=== PATIENT | male | born 2000 | race Caucasian/White ===

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

== ENCOUNTER 2019-07-15 12:26 | Inpatient (IN) | payer BC, MEDICAID ==
[~2019-07-15] VITALS: Ht 175.3 cm; Wt 78.1 kg
[~2019-07-15 12:26] MED LIST changes: -ARIP10TAB PO; +ARIP1TAB4 PO; -ARIP2TAB PO
[2019-07-15 13:54] LABS: HEMATOCRIT 44.3 % (42.0-52.0); HEMOGLOBIN 15.4 g/dl (13.5-17.5); MEAN CORPUSCULAR HGB CONC 34.8 g/dl (32.0-36.5); MEAN CORPUSCULAR VOLUME 86.2 fl (80.0-96.0); PLATELET COUNT, AUTOMATED 231 10^3/uL (150-450); RED BLOOD COUNT 5.14 10^6/uL (4.30-6.10); WHITE BLOOD COUNT 10.1 10^3/uL (4.0-10.0)
[2019-07-15 14:11] LABS: AMPHETAMINES LEVEL URINE NEGATIVE (NEGATIVE); BARBITURATES URINE NEGATIVE (NEGATIVE); BENZODIAZEPINES URINE NEGATIVE (NEGATIVE); CANNABINOIDS URINE NEGATIVE (NEGATIVE); COCAINE METABOLITE URINE NEGATIVE (NEGATIVE); METHADONE URINE NEGATIVE (NEGATIVE); OPIATES URINE NEGATIVE (NEGATIVE); PHENCYCLIDINE URINE NEGATIVE (NEGATIVE)
[2019-07-15 14:20] LABS: ACETAMINOPHEN LEVEL < 2.0 UG/ML (10.0-30.0); ALBUMIN 4.4 GM/DL (3.2-5.2); ALT/SGPT 24 U/L (12-78); BILIRUBIN,DIRECT 0.2 MG/DL (0.0-0.2); BILIRUBIN,TOTAL 0.5 MG/DL (0.2-1.0); BLOOD UREA NITROGEN 16 MG/DL (7-18); CALCIUM LEVEL 9.9 MG/DL (8.5-10.1); CARBON DIOXIDE LEVEL 31 MEQ/L (21-32); CHLORIDE LEVEL 103 MEQ/L (98-107); CREATININE FOR GFR 1.18 MG/DL (0.70-1.30); ETHYL ALCOHOL (ETHANOL) < 0.003 % (0.000-0.010); GLUCOSE, FASTING 102 MG/DL (70-100); POTASSIUM SERUM 4.1 MEQ/L (3.5-5.1); SALICYLATE LEVEL < 1.7 MG/DL (5.0-30.0); SODIUM LEVEL 140 MEQ/L (136-145); TOTAL PROTEIN 7.7 GM/DL (6.4-8.2)
[2019-07-15] MEDS ORDERED: SERT-138 PO (18:21)
[2019-07-15] MEDS ORDERED: ARIP1TAB PO (18:21)
[2019-07-15] MEDS ORDERED: MAALOX 30 ML SUSP *UDC PO PRN (18:30)
[2019-07-15] MEDS ORDERED: traZODone 50 MG TAB PO PRN (18:30)
[2019-07-15] MEDS ORDERED: MOM 30ML SUSPENSION UDC PO PRN (18:30)
[2019-07-15 20:16] VITALS: BP 144/86
[2019-07-16 06:00] VITALS: BP 140/57
--- NOTE | 2019-07-16 09:59 | MHHPEPDOC ---
[facility] History & Physical History and Physical Date of Service: 07/16/2019 Chief Complaint "I don't know why I'm here." History of Present Illness The patient, a 18-year-old young man, with a reported history of autism and reported concerns of schizophrenia, presents to the emergency room reportedly with "multiple personalities" that have been a chronic phenomenon for several years for the patient. He reportedly had yelled at a worker at his school and had wanted to leave, however, it's unclear as to why he was admitted as well as he denied any suicidal or homicidal ideation. He reports that he was not doing any unsafe behaviors and is unsure as to why he's admitted. The patient describes chronic multiple personalities, which appear to be consistent with schizotypal personality and magical thinking, but the patient appears to demonstrate significant reality testing. He reports that he wishes to be discharged as he has not been under any major changes and denies any major psychosocial changes. He reportedly was brought to the emergency room by his mother after the school psychology specialist had directed her to do so. Review Of Systems Depression: The patient denies any episodes of unprovoked depressed mood associated with neurovegetative symptoms lasting longer than 2 weeks with symptoms present nearly everyday. Anxiety: The patient denies any excessive worry associated with physical symptoms. They deny any experience of discreet panic in the past. Rocio: The patient denies any episodes of euphoria/dysphoria associated with decreased need for sleep, hedonism, talkatively or impulsivity lasting longer than 5 days. Psychotic: As above, but no overt episodes of auditory or visual hallucinations. Trauma: The patient denies any traumatic events associated with nightmares or intrusive thoughts. Borderline: Screens positive for cluster C personalities, but no cluster B traits. Past Psychiatric History The patient has a reported diagnosis of depression in the past and has been admitted in the past to [facility] for suicidal thoughts and had had one admission as a child, but it's unclear as to the rationale. The patient's on sertraline 200 and Abilify 10 mg daily "which he reports it's positive." He describes he's tried other medications, but is unable to recollect these at this time stating that his mother monitors most of his medications. He currently follows with [facility] for outpatient. Allergies Please see below. Family Psychiatric History The patient reports that his sister abused drugs and that his mother and sister have attempted suicide with a paternal uncle dying by suicide. Social History The patient currently lives with his mother. He's never with no children. The patient has no legal history. Currently has 2 siblings with a good relationship. He currently attends a technical/trade school and reports that he has been training. He's not clear as to what he wants to do when he grows up. He's currently in the 11th grade, but had failed the 11th grade last year. He's a self-described asexual. Substance Abuse History The patient denies any excessive alcohol use, tobacco or illicit drug use, denies history of substance use treatment. Medical History Patient has no significant past medical history. Mental Status Examination General: Well dressed with good hygiene Speech: Spontaneous and fluid Thought processes: Linear and logical MSK: Smooth and coordinated gait, no signs of tremors or involuntary orofacial movements Thought content: Future orientated Abstract reasoning, and computation: Intact Description of associations: Intact Description of abnormal or psychotic thoughts: Denies any suicidal or homicidal ideation. Denies any auditory or visual hallucinations. Does not appear to be responding to internal stimuli. Does discuss some of his "multiple personalities, but demonstrates fair reality testing when discussing them Judgment: fair Insight: fair Orientation: Alert and orientated 3 Cognition: Grossly normal Recent and remote memory: Intact Attention span and concentration: Intact Fund of knowledge: Adequate Mood: "okay" Affect: Euthymic with a full range Diagnoses Autism spectrum disorder. Schizotypal personality disorder. Unspecified depressive disorder. Assessment and Plan The patient, a 18-year-old young man, with likely autism and magical thinking consistent with schizotypal way of thinking rather than a psychotic thought process and is admitted for unclear circumstances. He demonstrates signs and symptoms that are primarily consistent with developmental/neuroatypicality rather than an overt psychotic disorder. Disposition The patient will likely need admission lasting longer than 2 midnights in order to ascertain the events that had led to his admission and ensure safety. Problem List 1. Ineffective coping. Initial Treatment Plan 1. Patient was admitted on a 9.39 legal status. 2. Complete history was obtained. 3. With patients permission, family will be contacted and database will be expanded. 4. Patients medication regimen will be reviewed and changed accordingly. 5. Patient will be provided with protected environment. 6. Patient will be treated with individual, group, and milieu therapies. 7. Patient will receive supportive psych-education. 8. Discharge planning will commence immediately. 9. Outpatient follow-up treatment will be strongly recommended. 10. The initial treatment plan will focus initially on restarting home medications. Estimated Length Of Stay Three days. Time Spent 45 minutes. Sunday Vital Signs Vital Signs Date Time Temp Pulse Resp B/P (MAP) Pulse Ox O2 Delivery O2 Flow Rate FiO2 07/16/19 06:00 97.9 85 16 140/57 (84) 07/15/19 20:16 98 07/15/19 12:26 Room Air Laboratory Data 24H Labs Laboratory Tests 2 07/15/19 13:34: Urine Amphetamines Screen NEGATIVE, Urine Benzodiazepines Screen NEGATIVE, Urine Opiates Screen NEGATIVE, Urine Methadone Screen NEGATIVE, Urine Barbiturates Screen NEGATIVE, Urine Phencyclidine Screen NEGATIVE, Urine Cocaine Metabolite Screen NEGATIVE, Urine Cannabinoids Screen NEGATIVE 07/15/19 13:35: Nucleated Red Blood Cells % (auto) 0.0, Anion Gap 6L, Calcium Level 9.9, Aspartate Amino Transf (AST/SGOT) 24, Alanine Aminotransferase (ALT/SGPT) 24, Alkaline Phosphatase 113, Total Bilirubin 0.5, Direct Bilirubin 0.2, Total Protein 7.7, Albumin 4.4, Albumin/Globulin Ratio 1.33, Thyroid Stimulating Horm one (TSH) 1.360, Salicylates Level < 1.7L, Acetaminophen Level < 2.0L, Ethyl Alcohol Level < 0.003 CBC/BMP Laboratory Tests 07/15/19 13:35 Red Blood Count 5.14, Mean Corpuscular Volume 86.2, Mean Corpuscular Hemoglobin 30.0, Mean Corpuscular Hemoglobin Concent 34.8, Red Cell Distribution Width 13.2 Medications Scheduled Aripiprazole (Aripiprazole) 10 Mg Tablet, 10 MG PO QHS, (Reported) Sertraline HCl (Sertraline HCl) 100 Mg Tablet, 200 MG PO DAILY, (Reported) Allergies Coded Allergies: No Known Allergies (Unverified , 01/30/18) OJ JUAN DO Jul 16, 2019 09:59
[2019-07-16] MEDS: SERTRALINE 100 MG TAB PO SCH (11:53)
[2019-07-16 15:30] VITALS: BP 152/65
--- NOTE | 2019-07-16 17:57 | CR.PDOC ---
General Date of Consultation: Jul 16, 2019 Attending Physician: CHRISTIANO JIMÉNEZ DO Consultation REASON FOR CONSULTATION/CHIEF COMPLAINT: Physical evaluation HISTORY OF PRESENT ILLNESS: Patient is 18 years old male with past medical history of autistic disorder, schizophrenia presented to the hospital with agitation. During my interview patient denied any problem with health besides only with mental health. He denied any cardiovascular problem, breathing problem, GI problem or dysuria. He denies fever, chills, nausea, vomiting, shortness of breath, palpitations, diarrhea or dysuria ALLERGIES: Please see below. HOME MEDICATIONS: Please see below. PAST MEDICAL HISTORY: autistic disorder, schizophrenia PAST SURGICAL HISTORY: None FAMILY HISTORY: Father: Healthy Mother: Healthy SOCIAL HISTORY: Marital status and/or living arrangements: Single Tobacco use: Denied ETOH: Denied Illicit drug use: Denied IV drug use: Denied PHYSICAL EXAMINATION: VITAL SIGNS: Please see below. GENERAL APPEARANCE: NAD HEENT: PERRLA, EOMI RESPIRATORY: CTA CARDIOVASCULAR: S1-S2 ABDOMEN: Nontender nondistended EXTREMITIES: No swelling NEUROLOGICAL: Cranial nerves from 2-12 intact LABORATORY DATA: Please see below. ASSESSMENT/PLAN: Patient does not have any acute diseases besides of his psychiatric diseases. Vital Signs/I&O Vital Signs Date Time Temp Pulse Resp B/P (MAP) Pulse Ox O2 Delivery O2 Flow Rate FiO2 07/16/19 15:30 98.8 74 20 152/65 (94) 07/15/19 20:16 98 07/15/19 12:26 Room Air Allergies Coded Allergies: No Known Allergies (Unverified , 01/30/18) Home Medications Scheduled Aripiprazole (Aripiprazole) 10 Mg Tablet, 10 MG PO QHS, (Reported) Sertraline HCl (Sertraline HCl) 100 Mg Tablet, 200 MG PO DAILY, (Reported) CHRISTIANO JIMÉNEZ DO Jul 16, 2019 17:57
[2019-07-16] MEDS: ARIPiprazole 10 MG TAB PO SCH (20:50)
[2019-07-17 06:26] VITALS: BP 122/74
[2019-07-17] MEDS: ACETAMINOPHEN TAB 650MG DOSE (2X325MG) PO PRN (07:01)
[2019-07-17] MEDS: SERTRALINE 100 MG TAB PO SCH (09:39)
--- NOTE | 2019-07-17 11:47 | MHIPNPDOC ---
[facility] Progress Note Progress Note DATE OF SERVICE: 07/17/19 HISTORY: The patient, a 18-year-old young man, with a reported history of autism and reported concerns of schizophrenia, presents to the emergency room report [facility] with "multiple personalities" that have been a chronic phenomenon for several years for the patient. He reportedly had yelled at a worker at his school and had wanted to leave, however, it's unclear as to why he was admitted as well as he denied any suicidal or homicidal ideation. He reports that he was not doing any unsafe behaviors and is unsure as to why he's admitted. The patient describes chronic multiple personalities, which appear to be consistent with schizotypal personality and magical thinking, but the patient appears to demonstrate significant reality testing. He reports that he wishes to be discharged as he has not been under any major changes and denies any major psychosocial changes. He reportedly was brought to the emergency room by his m other after the primary school teacher librarian had directed her to do so. VITAL SIGNS: See below. NEW TEST RESULTS: See below. CURRENT MEDICATIONS: See below. MENTAL STATUS EXAMINATION: General: Well dressed with good hygiene Speech: Spontaneous and fluid, reg rhythm/rate/volume Thought processes: Linear and logical, intact MSK: Smooth and coordinated gait, no signs of tremors or involuntary orofacial movements Thought content: Future orientated Abstract reasoning, and computation: Intact Description of associations: Intact Description of abnormal or psychotic thoughts: Denies any suicidal or homicidal ideation. Denies any auditory or visual hallucinations. Does not appear to be responding to internal stimuli. Judgment: fair Insight: fair Orientation: Alert and orientated 3 Cognition: Grossly normal Recent and remote memory: Intact Attention span and concentration: Intact Fund of knowledge: Adequate Mood: "balanced. neutral" Affect: Euthymic with a full range DIAGNOSES: Autism spectrum disorder. Schizotypal personality disorder. Unspecified depressive disorder. ASSESSMENT:Per d/c systems requirements planner, pt's mother called stating that pt appears to be at his baseline and doing well, acting like himself when she came to visit home yesterday and believes that the pt may come home soon. Pt seen and states he feels "balanced. neutral." He reports his sleep has been good, and his appetite is good as well. He has been going to a few group sessions, and he likes them and will continue to go to them while he is here. He is unsure why he is here and reports that his school and mother were overreacting. He is visibly upset about the circumstances as to which he came to the hospital. He reports his school has "trust issues" with him and they "jump to conclusions" because he never felt any different than a normal day for him. He is agreeable to plan to go home tomorrow with his mother. He is tolerating his medications well. He denies SI/HI/AVH, and feels safe here. MANAGEMENT PLAN: D/c planning for tomorrow abilify 10mg qhs zoloft 200mg daily trazodone 50mg qhs prn insomnia TIME SPENT:30 minutes. Vital Signs Vital Signs Date Time Temp Pulse Resp B/P (MAP) Pulse Ox O2 Delivery O2 Flow Rate FiO2 07/17/19 06:26 97.3 53 18 122/74 (90) 07/15/19 20:16 98 07/15/19 12:26 Room Air Current Medications Current Medications Medications (Trade) Dose Ordered Sig/Tim Route PRN Reason Start Time Stop Time Status Last Admin Dose Admin Acetaminophen (Tylenol Tab) 650 mg Q6HP PRN PO HEADACHE or DISCOMFORT 07/15/19 18:30 07/17/19 07:01 Al Hydrox/Mg Hydrox/Simethicone (Mylanta) 30 ml Q4HP PRN PO HEARTBURN/INDIGESTION 07/15/19 18:30 Aripiprazole (AbiLIFY) 10 mg QHS PO 07/16/19 21:00 07/16/19 20:50 Home Med (Med Rec Complete!) ASDIRECTED XX 07/15/19 18:30 07/15/19 18:30 DC Magnesium Hydroxide (Milk Of Magnesia) 30 ml DAILYPRN PRN PO CONSTIPATION 07/15/19 18:30 Sertraline HCl (Zoloft) 200 mg DAILY PO 07/16/19 09:00 07/17/19 09:39 Trazodone HCl (Desyrel) 50 mg QHSP PRN PO INSOMNIA 07/15/19 18:30 Allergies Coded Allergies: No Known Allergies (Unverified , 01/30/18) RADHA ESPAÑA DO Jul 17, 2019 10:34 am
[2019-07-17 18:44] VITALS: BP 134/75
[2019-07-17] MEDS: ARIPiprazole 10 MG TAB PO SCH (20:18)
[2019-07-18 06:02] VITALS: BP 109/61
[2019-07-18] MEDS: ACETAMINOPHEN TAB 650MG DOSE (2X325MG) PO PRN (07:08)
[2019-07-18] MEDS ORDERED: TRAZ-252 PO (08:29)
[2019-07-18] MEDS ORDERED: ARIP1TAB PO (08:29)
[2019-07-18] MEDS ORDERED: SERT-138 PO (08:29)
--- NOTE | 2019-07-18 08:29 | MHDSPDOC ---
[facility] Discharge Summary Discharge Summary DATE OF ADMISSION: Jul 15, 2019 at 6:21 pm DATE OF DISCHARGE: Jul 18, 2019 DISCHARGE DIAGNOSES: Autism spectrum disorder. Schizotypal personality disorder. Unspecified depressive disorder. REASON FOR ADMISSION: The patient, a 18-year-old young man, with a reported history of autism and reported concerns of schizophrenia, presents to the emergency room reportedly with "multiple personalities" that have been a chronic phenomenon for several years for the patient. He reportedly had yelled at a worker at his school and had wanted to leave, however, it's unclear as to why he was admitted as well as he denied any suicidal or homicidal ideation. He reports that he was not doing any unsafe behaviors and is unsure as to why he's admitted. The patient describes chronic multiple personalities, which appear to be consistent with schizotypal personality and magical thinking, but the patient appears to demonstrate significant reality testing. He reports that he wishes to be discharged as he has not been under any major changes and denies any major psychosocial changes. He reportedly was brought to the emergency room by his mother after the school cook had directed her to do so. CONSULTANTS INVOLVED: none TREATMENT AND PROGRESS ON THE UNIT : Pt was admitted to [facility], seen for psychiatric assessment and restarted on his outpatient medication abilify 10mg daily and zoloft 200mg daily for mood. He was provided trazodone 50mg qhs prn insomnia. Pt found his medications beneficial and tolerated them well. He attended groups daily during his stay. His symptoms improved with treatment. On day of discharge he denied depression, anxiety, insomnia, SI/HI, hallucinations, delusions. He was discharged home after family meeting with his mother with follow-up at [facility]. He felt safe for discharge DISCHARGE ASSESSMENT: Per d/c program planner yesterday, pt's mother called stating that pt appears to be at his baseline and doing well, acting like himself when she came to visit home yesterday and believes that the pt may come home soon. Pt seen and states he feels "good" today and is looking forward to going home with his mother today. He reports his sleep has been good, and his appetite is good as well. He has been going to a few group sessions, and he likes them and will continue to go to them while he is here. He is tolerating his medications well. He denies depression, anxiety, insomnia, SI/HI, hallucinations, delusions. He feels safe to d/c home with his mother today. MENTAL STATUS EXAMINATION ON DISCHARGE: General: Well dressed with good hygiene Speech: Spontaneous and fluid, reg rhythm/rate/volume Thought processes: Linear and logical, intact MSK: Smooth and coordinated gait, no signs of tremors or involuntary orofacial movements Thought content: Future orientated Abstract reasoning, and computation: Intact Description of associations: Intact Description of abnormal or psychotic thoughts: Denies any suicidal or homicidal ideation. Denies any auditory or visual hallucinations. Does not appear to be responding to internal stimuli. Judgment: fair-good Insight: fair-good Orientation: Alert and orientated 3 Cognition: Grossly normal Recent and remote memory: Intact Attention span and concentration: Intact Fund of knowledge: Adequate Mood: "good" Affect: Euthymic with a full range MEDICATIONS ON DISCHARGE: abilify 10mg qhs zoloft 200mg daily trazodone 50mg qhs prn insomnia PLAN/FOLLOWUP ARRANGEMENTS: D/c home with mother with follow-up at [facility]. The amount of time spent in the coordination of care for this patient was approximately 30 minutes. Vital Signs/I&Os Vital Signs Date Time Temp Pulse Resp B/P (MAP) Pulse Ox O2 Delivery O2 Flow Rate FiO2 07/18/19 06:02 97.4 50 18 109/61 (77) 07/15/19 20:16 98 07/15/19 12:26 Room Air Medications Scheduled Aripiprazole (Aripiprazole) 10 Mg Tablet, 10 MG PO QHS, (Reported) Sertraline HCl (Sertraline HCl) 100 Mg Tablet, 200 MG PO DAILY, (Reported) Allergies Coded Allergies: No Known Allergies (Unverified , 01/30/18) RADHA ESPAÑA DO Jul 18, 2019 8:29 am
[2019-07-18] MEDS: SERTRALINE 100 MG TAB PO SCH (09:20)
== END 2019-07-18 15:10 | disposition home or self-care (01) | DRG 757 ==
LOC: M ED 12:26 → M ED INP 18:21 → M PSY 20:00
PROVIDERS: ADMIT Psychiatry & Neurology Psychiatry; ATTEND Psychiatry & Neurology Psychiatry
DX: F84.0 Autistic disorder (principal); F21 Schizotypal disorder; F32.9 Major depressive disorder, single episode, unspecified; Z79.899 Other long term (current) drug therapy; Z81.8 Family history of other mental and behavioral disorders

== ENCOUNTER → 2019-12-04 | Outpatient (REF) | payer BC, MEDICAID ==
[~2019-12-04] MED LIST changes: +TRAZ-252 PO
[2019-12-04 15:10] LABS: BASO # 0.1 10^3/uL (0.0-0.2); BASO % 0.8 % (0.0-1.0); EOS # 0.1 10^3/uL (0.0-0.5); EOS % 1.2 % (0.0-3.0); HEMATOCRIT 46.9 % (42.0-52.0); HEMOGLOBIN 16.2 g/dl (13.5-17.5); LYMPH % 27.6 % (24.0-44.0); MEAN CORPUSCULAR HEMOGLOBIN 30.4 pg (27.0-33.0); MEAN CORPUSCULAR HGB CONC 34.5 g/dl (32.0-36.5); MONO # 0.5 10^3/uL (0.0-0.8); MONO % 7.3 % (0.0-5.0); NEUTROPHILS # 4.6 10^3/uL (1.5-8.5); NEUTROPHILS % 62.7 % (36.0-66.0); PLATELET COUNT, AUTOMATED 215 10^3/uL (150-450); RED BLOOD COUNT 5.33 10^6/uL (4.30-6.10); WHITE BLOOD COUNT 7.3 10^3/uL (4.0-10.0)
[2019-12-04 15:46] LABS: ALBUMIN 4.6 GM/DL (3.2-5.2); ALT/SGPT 29 U/L (12-78); BILIRUBIN,TOTAL 0.4 MG/DL (0.2-1.0); BLOOD UREA NITROGEN 18 MG/DL (7-18); CALCIUM LEVEL 9.5 MG/DL (8.5-10.1); CARBON DIOXIDE LEVEL 28 MEQ/L (21-32); CHLORIDE LEVEL 107 MEQ/L (98-107); ERYTHROCYTE SEDIMENTATION RATE 2 mm/hr (0-15); GLUCOSE, FASTING 97 MG/DL (70-100); RHEUMATOID FACTOR QUANT < 10.0 IU/ML (<15.0); SODIUM LEVEL 142 MEQ/L (136-145); TOTAL PROTEIN 7.7 GM/DL (6.4-8.2)
[2019-12-04 15:48] LABS: TOTAL 25(OH) VITAMIN D 28.6 NG/ML (30.0-100.0)
[2019-12-05 14:07] LABS: ANTINUCLEAR ANTIBODIES DIRECT Negative (Negative)
== END ==
LOC: M LABNEURO 12:48
PROVIDERS: ATTEND Psychiatry & Neurology Neurology
DX: R51 Headache (principal)

== ENCOUNTER → 2022-03-17 | Outpatient (CLI) | payer BC, MEDICAID ==
[~2022-03-17] MED LIST changes: +ARIP10TA32 PO
[2022-03-17 11:25] LABS: BASO # 0.1 10^3/uL (0.0-0.2); BASO % 1.1 % (0.0-1.0); EOS # 0.1 10^3/uL (0.0-0.5); EOS % 1.4 % (0.0-3.0); HEMATOCRIT 42.6 % (42.0-52.0); HEMOGLOBIN 14.7 g/dl (13.5-17.5); LYMPH # 2.2 10^3/uL (1.5-5.0); LYMPH % 33.6 % (24.0-44.0); MEAN CORPUSCULAR HEMOGLOBIN 30.1 pg (27.0-33.0); MEAN CORPUSCULAR HGB CONC 34.5 g/dl (32.0-36.5); MEAN CORPUSCULAR VOLUME 87.1 fl (80.0-96.0); MONO # 0.6 10^3/uL (0.0-0.8); MONO % 8.8 % (2.0-8.0); NEUTROPHILS # 3.6 10^3/uL (1.5-8.5); NEUTROPHILS % 54.2 % (36.0-66.0); PLATELET COUNT, AUTOMATED 194 10^3/uL (150-450); RED BLOOD COUNT 4.89 10^6/uL (4.30-6.10); WHITE BLOOD COUNT 6.6 10^3/uL (4.0-10.0)
[2022-03-17 12:13] LABS: ALBUMIN 4.3 GM/DL (3.2-5.2); ALT/SGPT 19 U/L (12-78); BILIRUBIN,DIRECT 0.2 MG/DL (0.0-0.2); BILIRUBIN,TOTAL 0.5 MG/DL (0.2-1.0); BLOOD UREA NITROGEN 13 MG/DL (7-18); CARBON DIOXIDE LEVEL 30 MEQ/L (21-32); CHLORIDE LEVEL 110 MEQ/L (98-107); CHOLESTEROL LEVEL 168 MG/DL (<200); CREATININE FOR GFR 1.04 MG/DL (0.70-1.30); GLOMERULAR FILTRATION RATE > 60.0 (>60); GLUCOSE, FASTING 61 MG/DL (70-100); HDL CHOLESTEROL 50 MG/DL (>40); LDL CHOLESTEROL 100 MG/DL (<100); NON-HDL-C 118 MG/DL; PHOSPHORUS LEVEL 3.2 MG/DL (2.5-4.9); POTASSIUM SERUM 4.4 MEQ/L (3.5-5.1); SODIUM LEVEL 145 MEQ/L (136-145); TOTAL PROTEIN 7.5 GM/DL (6.4-8.2); TRIGLYCERIDES LEVEL 89 MG/DL (<150)
[2022-03-17 12:16] LABS: TOTAL 25(OH) VITAMIN D 28.8 NG/ML (30.0-100.0)
[2022-03-17 14:42] LABS: HEMOGLOBIN A1c 4.6 %
== END ==
LOC: M EKG 10:19
PROVIDERS: ATTEND Registered Nurse
DX: F32.2 Major depressive disorder, single episode, severe without psychotic features (principal)

== ENCOUNTER → 2023-06-05 | Outpatient (CLI) | payer BC, MEDICAID | LOC: M WHC 14:34 | PROVIDERS: ATTEND Physician Assistant Medical | DX: N63.41 Unspecified lump in right breast, subareolar (principal); N63.42 Unspecified lump in left breast, subareolar | CPT/HCPCS: 76642; 77066; G0279 ==

== ENCOUNTER → 2024-07-04 | Outpatient (REF) | payer MEDICAID, OTHER ==
[2024-07-04 17:13] LABS: ALBUMIN 4.3 G/DL (3.2-5.2); ALKALINE PHOSPHATASE 54 U/L (46-116); ALT/SGPT 18 U/L (7.0-40); AST/SGOT 13 U/L (<34); BILIRUBIN,TOTAL 0.5 MG/DL (0.3-1.2); BLOOD UREA NITROGEN 16 MG/DL (9-23); CALCIUM LEVEL 10.3 MG/DL (8.5-10.1); CARBON DIOXIDE LEVEL 30 MMOL/L (20-31); CHLORIDE LEVEL 105 MMOL/L (98-107); CHOLESTEROL LEVEL 195 MG/DL (<200); CHOLESTEROL RISK RATIO 3.69 (<5); CREATININE FOR GFR 0.91 MG/DL (0.70-1.30); GLOMERULAR FILTRATION RATE > 60.0 (>60); GLUCOSE, FASTING 113 MG/DL (60-100); HDL CHOLESTEROL 52.8 MG/DL (>40); NON-HDL-C 142.2 MG/DL; POTASSIUM SERUM 4.2 MMOL/L (3.5-5.1); SODIUM LEVEL 138 MMOL/L (136-145); TOTAL PROTEIN 7.5 G/DL (5.7-8.2); TRIGLYCERIDES LEVEL 166 MG/DL (<150)
[2024-07-04 17:14] LABS: THYROID STIMULATING HORMONE 1.483 uIU/ML (0.55-4.78)
[2024-07-04 17:16] LABS: TOTAL 25(OH) VITAMIN D 21.6 NG/ML (20.0-100.0)
[2024-07-04 17:40] LABS: HEMOGLOBIN A1c 4.6 % (4.0-6.0)
== END ==
LOC: M LAB REF 16:40
PROVIDERS: ATTEND Physician Assistant
DX: E55.9 Vitamin D deficiency, unspecified (principal); E66.9 Obesity, unspecified

== ENCOUNTER 2025-06-18 04:36 | Emergency (ER) | payer OTHER, MEDICAID ==
[~2025-06-18] VITALS: Ht 170.2 cm; Wt 85.4 kg
[~2025-06-18 04:36] MED LIST changes: -ARIP10TA32 PO; +ARIP10TA63 PO
[2025-06-18 06:54] LABS: BASO # 0.1 10^3/uL (0.0-0.2); BASO % 0.8 % (0.0-1.0); EOS # 0.1 10^3/uL (0.0-0.5); EOS % 0.8 % (0.0-3.0); LYMPH # 2.7 10^3/uL (1.5-5.0); LYMPH % 23.1 % (24.0-44.0); MONO # 0.8 10^3/uL (0.0-0.8); MONO % 6.5 % (2.0-8.0); NEUTROPHILS # 8.1 10^3/uL (1.5-8.5); NEUTROPHILS % 68.4 % (36.0-66.0); PLATELET COUNT, AUTOMATED 272 10^3/uL (150-450)
[2025-06-18 07:08] LABS: D-DIMER QUANT < 0.27 ug/mL (<0.5); INR 0.96
[2025-06-18 07:28] LABS: CALCIUM LEVEL 9.7 MG/DL (8.5-10.1); CARBON DIOXIDE LEVEL 28 MMOL/L (20-31); CHLORIDE LEVEL 102 MMOL/L (98-107); CK-MB VALUE MASS < 1.0 NG/ML (<3.6); CPK CREATINE PHOSPHOKINASE 37 U/L (46-171); CREATININE FOR GFR 1.03 MG/DL (0.70-1.30); GLOMERULAR FILTRATION RATE > 90.0 (>60); POTASSIUM SERUM 4.3 MMOL/L (3.5-5.1); SODIUM LEVEL 141 MMOL/L (136-145)
[2025-06-18] MEDS ORDERED: PROG1CAP8 PO (08:05)
[2025-06-18] MEDS ORDERED: HOME MED LIST COMPLETE! XX SCH (08:05)
[2025-06-18] MEDS ORDERED: CETI-24 PO (08:05)
[2025-06-18] MEDS ORDERED: ESTR1TAB PO (08:05)
[2025-06-18] MEDS ORDERED: BUPR-766 PO (08:05)
[2025-06-18] MEDS ORDERED: SPIR100T3 PO (08:05)
[2025-06-18 08:22] LABS: CK-MB VALUE MASS < 1.0 NG/ML (<3.6)
[2025-06-18 08:23] LABS: CPK CREATINE PHOSPHOKINASE 33 U/L (46-171)
[2025-06-18 08:39] VITALS: BP 134/77; TEMP 96.9; O2SAT 97
== END 2025-06-18 08:40 | disposition home or self-care (01) ==
LOC: M ED 04:36
DX: R07.9 Chest pain, unspecified (principal); Z79.899 Other long term (current) drug therapy

== ENCOUNTER → 2025-07-16 | Outpatient (REF) | payer OTHER, MEDICAID ==
[~2025-07-16] MED LIST changes: +BUPR-766 PO; +CETI-24 PO; +ESTR1TAB PO; +PROG1CAP8 PO; +SPIR100T3 PO
[2025-07-16 17:31] LABS: ALT/SGPT 21 U/L (7.0-40); AST/SGOT 14 U/L (<34); CALCIUM LEVEL 10.4 MG/DL (8.5-10.1); CARBON DIOXIDE LEVEL 25 MMOL/L (20-31); CHLORIDE LEVEL 103 MMOL/L (98-107); CREATININE FOR GFR 1.14 MG/DL (0.70-1.30); GLOMERULAR FILTRATION RATE > 90.0 (>60); POTASSIUM SERUM 4.3 MMOL/L (3.5-5.1); SODIUM LEVEL 140 MMOL/L (136-145)
[2025-07-16 17:32] LABS: TOTAL 25(OH) VITAMIN D 19.0 NG/ML (20.0-100.0)
[2025-07-16 17:33] LABS: FREE T4 1.34 NG/DL (0.89-1.76)
== END ==
LOC: M LAB REF 16:20
PROVIDERS: ATTEND Physician Assistant
DX: E55.9 Vitamin D deficiency, unspecified (principal); F41.8 Other specified anxiety disorders

== ENCOUNTER 2025-07-18 05:36 | Emergency (ER) | payer OTHER, MEDICAID ==
[~2025-07-18] VITALS: Ht 170.2 cm; Wt 85.5 kg
[2025-07-18 08:12] LABS: BASO # 0.1 10^3/uL (0.0-0.2); BASO % 0.9 % (0.0-1.0); EOS # 0.2 10^3/uL (0.0-0.5); EOS % 1.3 % (0.0-3.0); LYMPH # 2.7 10^3/uL (1.5-5.0); LYMPH % 22.1 % (24.0-44.0); MONO # 0.8 10^3/uL (0.0-0.8); MONO % 7.0 % (2.0-8.0); NEUTROPHILS # 8.2 10^3/uL (1.5-8.5); NEUTROPHILS % 68.1 % (36.0-66.0); PLATELET COUNT, AUTOMATED 282 10^3/uL (150-450)
[2025-07-18 08:36] LABS: CK-MB VALUE MASS 1.0 NG/ML (<3.6)
[2025-07-18 08:38] LABS: CPK CREATINE PHOSPHOKINASE 47 U/L (46-171); MB/CK RELATIVE INDEX 2.12 (< OR =4)
[2025-07-18 08:40] LABS: FREE T4 1.29 NG/DL (0.89-1.76)
[2025-07-18 08:50] LABS: ALT/SGPT 17 U/L (7.0-40); AST/SGOT 14 U/L (<34); CALCIUM LEVEL 9.5 MG/DL (8.5-10.1); CARBON DIOXIDE LEVEL 26 MMOL/L (20-31); CHLORIDE LEVEL 105 MMOL/L (98-107); CREATININE FOR GFR 0.98 MG/DL (0.70-1.30); GLOMERULAR FILTRATION RATE > 90.0 (>60); POTASSIUM SERUM 4.7 MMOL/L (3.5-5.1); SODIUM LEVEL 137 MMOL/L (136-145)
[2025-07-18 11:15] VITALS: BP 134/80; TEMP 98; O2SAT 96
== END 2025-07-18 11:27 | disposition home or self-care (01) ==
LOC: M ED 05:36
DX: K80.20 Calculus of gallbladder without cholecystitis without obstruction (principal); B34.8 Other viral infections of unspecified site; F84.0 Autistic disorder; R51.9 Headache, unspecified; F20.9 Schizophrenia, unspecified; Z79.899 Other long term (current) drug therapy

== ENCOUNTER 2025-08-20 12:23 | Day surgery (SDC) | payer OTHER, MEDICAID ==
[~2025-08-20] VITALS: Ht 167.6 cm; Wt 82.6 kg
[~2025-08-20 12:23] MED LIST changes: +ESTR2TAB3 PO
[2025-08-20] MEDS ORDERED: FAMOTIDINE 20 MG/2 ML VIAL IVP ONE (12:45)
[2025-08-20] MEDS ORDERED: dexAMETHasone 4 MG/ML 1 ML VIAL As Ordered ONE (13:27)
[2025-08-20] MEDS ORDERED: MIDAZOLAM INJ 2 MG/2 ML VIAL As Ordered ONE (13:27)
[2025-08-20] MEDS ORDERED: KETOROLAC 30 MG/ML 1 ML VIAL As Ordered ONE (13:27)
[2025-08-20] MEDS ORDERED: ONDANSETRON 4MG/2ML VIAL As Ordered ONE (13:27)
[2025-08-20] MEDS ORDERED: SUGAMMADEX SODIUM 500 MG/5 ML VIAL As Ordered ONE (13:28)
[2025-08-20] MEDS ORDERED: ROCURONIUM BROMIDE 50MG/5ML VIAL As Ordered ONE (13:28)
[2025-08-20] MEDS ORDERED: LIDOCAINE 2% 100 MG/5 ML SDV (FOR ANES.) As Ordered ONE (13:28)
[2025-08-20] MEDS ORDERED: dexmedeTOMIDine (4 MCG/ML) 200 MCG/50 ML BTL As Ordered ONE (13:37)
[2025-08-20] MEDS: SCOPOLAMINE 1MG TRANSDERMAL PATCH TOP ONE (13:40)
[2025-08-20] MEDS: INDOCYANINE GREEN 25 MG VIAL As Ordered ONE (15:04)
[2025-08-20] MEDS: INDOCYANINE GREEN 25 MG VIAL IV ONE (15:14)
[2025-08-20] MEDS: ceFAZolin SOD 2 GM IV ONCE IV ONE (15:16)
[2025-08-20] MEDS ORDERED: ACETAMINOPHEN 1000MG/100ML IV BAG As Ordered ONE (15:17)
[2025-08-20] MEDS: HEPARIN SOD 5000 UNITS/ML 1 ML VIAL/SYRINGE SQ ONE (15:35)
[2025-08-20] MEDS ORDERED: MORPHINE 4 MG/ML 1 ML VIAL IV PRN (16:20)
[2025-08-20] MEDS ORDERED: HYDR-3713 PO ×2 (16:40)
[2025-08-20] MEDS: ONDANSETRON 4MG/2ML VIAL IV PRN (17:06)
[2025-08-20 17:25] VITALS: BP 139/95; TEMP 97.4; O2SAT 97
== END 2025-08-20 18:10 | disposition home or self-care (01) ==
LOC: M SDC 12:23
PROVIDERS: ATTEND Surgery
DX: K80.20 Calculus of gallbladder without cholecystitis without obstruction (principal); F41.9 Anxiety disorder, unspecified; F32.A Depression, unspecified; Z79.899 Other long term (current) drug therapy
CPT/HCPCS: 47562; 88304; J0131; J0665; J0688; J1100; J1885; J2250; J2405; J2765; J3010; Q9968; S2900